=== PATIENT | female | born 1970 | race Caucasian/White ===

== ENCOUNTER 2017-05-07 13:39 | Emergency (ER) | payer MEDICAID ==
[~2017-05-07] VITALS: Ht 160 cm; Wt 65.8 kg
[2017-05-07] MEDS ORDERED: CLONAZEPAM 0.50.5 M1 PO (13:58)
[2017-05-07] MEDS ORDERED: EFFEXOR XR75 MG PO (13:58)
[2017-05-07] MEDS ORDERED: SEROQUEL 25 MG25 M1 PO (13:58)
[2017-05-07] MEDS ORDERED: SEROQUEL 50 MG50 MG PO (13:58)
[2017-05-07] MEDS ORDERED: OXYCODONE HCL15 MG PO (13:59)
[2017-05-07] MEDS ORDERED: NEURONTIN600 MG PO (14:00)
[2017-05-07] MEDS ORDERED: PERCOCET 5-3251 EACH PO (15:21)
[2017-05-07] MEDS ORDERED: IBUPROFEN 800800 MG PO (15:21)
[2017-05-07 15:41] VITALS: BP 113/66
--- NOTE | 2017-05-08 15:48 | EKG ---
[place] [address] ELECTROCARDIOGRAM REPORT Name: MICHAEL SÁNCHEZ Room: [facility]#: [id number] Admission: 05/07/17 Attend Phys: Discharge: 05/07/17 Date of : 68 Report #: [id number] THIS REPORT FOR: //name// [facility] ED Test Date: 2017-05-07 Test Time: 13:52:12 Pat Name: MICHAEL SÁNCHEZ Department: Room: Gender: F Cart Pusher: SANDIE : 1970 Requested By: Lucie Ortez Order Number: [id number] Mei MD: Kiko Landaverde Measurements Intervals Allison Rate: 115 P: 75 [place]: 117 QRS: 71 QRSD: 89 T: -4 QT: 329 QTc: 455 Interpretive Statements Sinus tachycardia Borderline T abnormalities, inferior leads No previous ECG available for comparison Electronically Signed On 05-08-2017 15:48:13 [employer] by Kiko Landaverde [email or web address] <ELECTRONICALLY SIGNED> By: Kiko Landaverde MD, [facility] 05/08/17 1548 1352 1352 Kiko Landaverde MD, FACC /EPI
== END 2017-05-07 15:42 | disposition home or self-care (01) ==
LOC: M.ERS 13:39
DX: S42.102A Fracture of unspecified part of scapula, left shoulder, initial encounter for closed fracture (principal); V89.2XXA Person injured in unspecified motor-vehicle accident, traffic, initial encounter; Y93.89 Activity, other specified; Y92.89 Other specified places as the place of occurrence of the external cause; Y99.8 Other external cause status

== ENCOUNTER 2017-07-14 11:01 | Emergency (ER) | payer MEDICAID ==
[~2017-07-14] VITALS: Ht 160 cm; Wt 68.0 kg
[~2017-07-14 11:01] MED LIST: CLONAZEPAM 0.50.5 M1 PO; EFFEXOR XR75 MG PO; IBUPROFEN 800800 MG PO; NEURONTIN600 MG PO; OXYCODONE HCL15 MG PO; PERCOCET 5-3251 EACH PO; SEROQUEL 25 MG25 M1 PO; SEROQUEL 50 MG50 MG PO
[2017-07-14] MEDS ORDERED: BACTRIM DS TAB1 EACH PO (11:34)
[2017-07-14] MEDS ORDERED: MUPIROCIN22 GM TOP (11:34)
[2017-07-14] MEDS ORDERED: NORCO 5-325 TA1 EACH PO (11:34)
[2017-07-14 12:17] VITALS: BP 140/79
== END 2017-07-14 12:18 | disposition home or self-care (01) ==
LOC: M.ERS 11:01
DX: M54.9 Dorsalgia, unspecified (principal); S51.802A Unspecified open wound of left forearm, initial encounter; B95.62 Methicillin resistant Staphylococcus aureus infection as the cause of diseases classified elsewhere; X58.XXXA Exposure to other specified factors, initial encounter; Y93.89 Activity, other specified; Y92.89 Other specified places as the place of occurrence of the external cause; Y99.8 Other external cause status

== ENCOUNTER 2017-10-26 13:48 | Emergency (ER) | payer MEDICAID ==
[~2017-10-26] VITALS: Ht 162.6 cm; Wt 68.0 kg
[~2017-10-26 13:48] MED LIST changes: +BACTRIM DS TAB1 EACH PO; +MUPIROCIN22 GM TOP; +NORCO 5-325 TA1 EACH PO
[2017-10-26] MEDS ORDERED: NORCO 5-325 TA1 EAC1 PO (16:50)
[2017-10-26 17:11] VITALS: BP 147/99
== END 2017-10-26 17:12 | disposition home or self-care (01) ==
LOC: M.ERS 13:48
DX: S40.012A Contusion of left shoulder, initial encounter (principal); S50.02XA Contusion of left elbow, initial encounter; F17.210 Nicotine dependence, cigarettes, uncomplicated; W17.89XA Other fall from one level to another, initial encounter; Y93.89 Activity, other specified; Y92.89 Other specified places as the place of occurrence of the external cause; Y99.8 Other external cause status